=== PATIENT | female | born 1955 | race Caucasian/White ===

== ENCOUNTER → 2017-12-05 | Outpatient (CLI) | payer BC ==
[2017-12-05 16:22] LABS: EOS # 0.2 (0.04-0.40); EOS % 2.2 % (1.0-5.0); HEMATOCRIT 41.9 % (37.0-47.0); HEMOGLOBIN 14.1 g/dL (12.5-16.0); LYMPH# 2.8 (1.50-4.00); MEAN CELL VOLUME 89 fl (78-100); MEAN CORPUSCULAR HEMOGLOBIN 30 pg (27-31); MEAN CORPUSCULAR HGB CONC 34 g/dL (33-37); MEAN PLATELET VOLUME 11.1 fl (7.4-10.4); MONO # 0.8 (0.20-0.80); NEU # 5.1 (1.40-6.50); PLATELET COUNT 221 K/mm3 (130-400); RED BLOOD COUNT 4.71 M/mm3 (4.10-5.30); RED CELL DISTRIBUTION WIDTH 13.4 % (11.5-14.5); WHITE BLOOD COUNT 8.9 K/mm3 (4.8-10.8)
[2017-12-05 16:28] LABS: ALBUMIN 4.3 g/dL (3.5-5.0); BUN/CREATININE RATIO 28.8 (6.0-26.0); CALCIUM 9.3 mg/dL (8.4-10.2); POTASSIUM 4.7 mmol/L (3.6-5.0); TOTAL BILIRUBIN 0.7 mg/dL (0.2-1.3); TOTAL PROTEIN 7.4 g/dL (6.3-8.2)
[2017-12-05 17:10] LABS: URINE APPEARANCE HAZY; URINE BILIRUBIN NEGATIVE (NEGATIVE); URINE BLOOD TRACE (NEGATIVE); URINE COLOR YELLOW; URINE GLUCOSE NEGATIVE (NEGATIVE); URINE KETONE NEGATIVE (NEGATIVE); URINE LEUKOCYTE ESTERASE TRACE (NEGATIVE); URINE NITRATE NEGATIVE (NEGATIVE); URINE PROTEIN(semi-quant) TRACE mg/dL (NEGATIVE); URINE UROBILINOGEN NORMAL (NORMAL)
== END ==
LOC: RAD 15:23
PROVIDERS: Family Medicine
DX: Z01.419 Encounter for gynecological examination (general) (routine) without abnormal findings (principal); E11.9 Type 2 diabetes mellitus without complications; E03.9 Hypothyroidism, unspecified

== ENCOUNTER → 2018-01-02 | Outpatient (CLI) | payer BC | LOC: MAMMO 15:13 | DX: Z12.31 Encounter for screening mammogram for malignant neoplasm of breast (principal) ==

== ENCOUNTER → 2018-05-01 | Outpatient (CLI) | payer BC | LOC: RAD 09:47 | DX: M17.0 Bilateral primary osteoarthritis of knee (principal) ==

== ENCOUNTER 2019-06-16 08:52 | Inpatient (IN) | payer BC ==
[~2019-06-16] VITALS: Ht 167.6 cm; Wt 118.2 kg
[2019-06-16 09:50] LABS: HEMATOCRIT 42.5 % (37.0-47.0); HEMOGLOBIN 13.9 g/dL (12.5-16.0); MEAN CELL VOLUME 90 fl (78-100); MEAN CORPUSCULAR HEMOGLOBIN 29 pg (27-31); MEAN CORPUSCULAR HGB CONC 33 g/dL (33-37); MEAN PLATELET VOLUME 11.5 fl (7.4-10.4); PLATELET COUNT 205 K/mm3 (130-400); RED BLOOD COUNT 4.73 M/mm3 (4.10-5.30); RED CELL DISTRIBUTION WIDTH 14.1 % (11.5-14.5); WHITE BLOOD COUNT 8.3 K/mm3 (4.8-10.8)
[2019-06-16 09:59] LABS: ALBUMIN 4.5 g/dL (3.4-4.8); POTASSIUM 3.8 mmol/L (3.5-5.1)
[2019-06-16 10:00] LABS: CALCIUM 8.8 mg/dL (8.3-10.5)
[2019-06-16 10:01] LABS: TOTAL PROTEIN 7.6 g/dL (6.2-8.1)
[2019-06-16 10:03] LABS: TOTAL BILIRUBIN 0.8 mg/dL (0.2-1.2)
[2019-06-16 10:53] LABS: LYMPHOCYTE 12 % (20-51); MONOCYTE 6 % (3-10); NEUTROPHILS 82 % (42-75)
[2019-06-16 12:35] VITALS: BP 138/69
[2019-06-16 12:39] VITALS: BP 138/69
[2019-06-16 13:11] VITALS: BP 138/69
[2019-06-16 14:13] VITALS: BP 134/74
[2019-06-16 17:06] VITALS: BP 132/68
[2019-06-16 21:47] VITALS: BP 114/65
[2019-06-17 02:00] VITALS: BP 116/68
[2019-06-17 05:32] VITALS: BP 117/73
[2019-06-17 06:16] LABS: EOS # 0.1 (0.04-0.40); EOS % 1.4 % (1.0-5.0); HEMATOCRIT 39.6 % (37.0-47.0); HEMOGLOBIN 12.3 g/dL (12.5-16.0); LYMPH# 1.6 (1.50-4.00); MEAN CELL VOLUME 92 fl (78-100); MEAN CORPUSCULAR HEMOGLOBIN 28 pg (27-31); MEAN CORPUSCULAR HGB CONC 31 g/dL (33-37); MEAN PLATELET VOLUME 10.5 fl (7.4-10.4); MONO # 0.4 (0.20-0.80); NEU # 1.6 (1.40-6.50); PLATELET COUNT 167 K/mm3 (130-400); RED BLOOD COUNT 4.33 M/mm3 (4.10-5.30); RED CELL DISTRIBUTION WIDTH 14.4 % (11.5-14.5); WHITE BLOOD COUNT 3.6 K/mm3 (4.8-10.8)
[2019-06-17 06:44] LABS: ALBUMIN 3.8 g/dL (3.4-4.8)
[2019-06-17 06:45] LABS: POTASSIUM 3.9 mmol/L (3.5-5.1)
[2019-06-17 06:46] LABS: CALCIUM 7.8 mg/dL (8.3-10.5)
[2019-06-17 06:47] LABS: TOTAL PROTEIN 6.4 g/dL (6.2-8.1)
[2019-06-17 06:49] LABS: TOTAL BILIRUBIN 0.5 mg/dL (0.2-1.2)
[2019-06-17 09:50] VITALS: BP 136/79
[2019-06-17 14:15] VITALS: BP 128/69
[2019-06-17 17:00] VITALS: BP 121/69
[2019-06-17 21:39] VITALS: BP 135/76
[2019-06-18 02:08] VITALS: BP 120/66
[2019-06-18 05:42] VITALS: BP 128/64
[2019-06-18 09:52] VITALS: BP 123/79
[2019-06-18] MEDS ORDERED: IPRATROPIUM BROM3 M1 IH (09:59)
[2019-06-18] MEDS ORDERED: OSELTAMIVIR PHO75 MG PO (10:00)
[2019-06-18] MEDS ORDERED: ZITHROMAX500 M2 PO (10:01)
== END 2019-06-18 11:05 | disposition home or self-care (01) | DRG 195 ==
LOC: ED 08:52 → MED/SURG 12:14
PROVIDERS: ADMIT Nurse Practitioner Primary Care
DX: J10.00 Influenza due to other identified influenza virus with unspecified type of pneumonia (principal); E11.9 Type 2 diabetes mellitus without complications; D64.9 Anemia, unspecified; K74.60 Unspecified cirrhosis of liver; Z90.710 Acquired absence of both cervix and uterus; Z88.1 Allergy status to other antibiotic agents; R09.02 Hypoxemia
CPT/HCPCS: C9113; J1650; J7030

== ENCOUNTER → 2019-06-25 | Outpatient (CLI) | payer BC ==
[2019-06-18 09:52] VITALS: BP 123/79
[~2019-06-25] MED LIST: IPRATROPIUM BROM3 M1 IH; OSELTAMIVIR PHO75 MG PO; ZITHROMAX500 M2 PO
[2019-06-25 09:23] LABS: ALBUMIN 4.6 g/dL (3.4-4.8); EOS # 0.2 (0.04-0.40); HEMATOCRIT 43.7 % (37.0-47.0); HEMOGLOBIN 14.6 g/dL (12.5-16.0); LYMPH# 3.3 (1.50-4.00); MEAN CELL VOLUME 88 fl (78-100); MEAN CORPUSCULAR HEMOGLOBIN 30 pg (27-31); MEAN CORPUSCULAR HGB CONC 33 g/dL (33-37); MEAN PLATELET VOLUME 10.8 fl (7.4-10.4); MONO # 0.5 (0.20-0.80); PLATELET COUNT 284 K/mm3 (130-400); POTASSIUM 4.3 mmol/L (3.5-5.1); RED BLOOD COUNT 4.95 M/mm3 (4.10-5.30); RED CELL DISTRIBUTION WIDTH 13.3 % (11.5-14.5); WHITE BLOOD COUNT 8.1 K/mm3 (4.8-10.8)
[2019-06-25 09:25] LABS: CALCIUM 9.7 mg/dL (8.3-10.5)
[2019-06-25 09:26] LABS: TOTAL PROTEIN 7.4 g/dL (6.2-8.1)
[2019-06-25 09:28] LABS: TOTAL BILIRUBIN 0.7 mg/dL (0.2-1.2)
== END ==
LOC: LAB 09:00
PROVIDERS: Family Medicine
DX: E11.9 Type 2 diabetes mellitus without complications (principal); D64.9 Anemia, unspecified

== ENCOUNTER → 2019-11-12 | Outpatient (CLI) | payer BC | LOC: LAB 08:35 | DX: E11.9 Type 2 diabetes mellitus without complications (principal) ==

== ENCOUNTER → 2020-06-07 | Outpatient (CLI) | payer BC ==
[2020-06-07 10:25] LABS: EOS # 0.2 (0.04-0.40); EOS % 3.2 % (1.0-5.0); HEMATOCRIT 46.9 % (37.0-47.0); HEMOGLOBIN 15.3 g/dL (12.5-16.0); LYMPH# 2.5 (1.50-4.00); MEAN CELL VOLUME 90 fl (78-100); MEAN CORPUSCULAR HEMOGLOBIN 29 pg (27-31); MEAN CORPUSCULAR HGB CONC 33 g/dL (33-37); MEAN PLATELET VOLUME 10.3 fl (7.4-10.4); MONO # 0.5 (0.20-0.80); NEU # 3.3 (1.40-6.50); PLATELET COUNT 245 K/mm3 (130-400); RED BLOOD COUNT 5.23 M/mm3 (4.10-5.30); RED CELL DISTRIBUTION WIDTH 13.1 % (11.5-14.5); WHITE BLOOD COUNT 6.5 K/mm3 (4.8-10.8)
[2020-06-07 10:32] LABS: POTASSIUM 4.6 mmol/L (3.5-5.1)
[2020-06-07 10:33] LABS: ALBUMIN 4.4 g/dL (3.4-4.8)
[2020-06-07 10:34] LABS: CALCIUM 9.3 mg/dL (8.3-10.5)
[2020-06-07 10:35] LABS: TOTAL PROTEIN 7.4 g/dL (6.2-8.1)
[2020-06-07 10:37] LABS: TOTAL BILIRUBIN 0.7 mg/dL (0.2-1.2)
== END ==
LOC: LAB 10:08
PROVIDERS: Family Medicine
DX: Z00.00 Encounter for general adult medical examination without abnormal findings (principal); E78.5 Hyperlipidemia, unspecified; E11.9 Type 2 diabetes mellitus without complications

== ENCOUNTER → 2020-06-22 | Outpatient (CLI) | payer BC | LOC: MAMMO 15:38 | DX: Z12.31 Encounter for screening mammogram for malignant neoplasm of breast (principal) ==

== ENCOUNTER → 2020-09-01 | Outpatient (CLI) | payer BC | LOC: RAD 10:30 → VAS 10:30 | DX: R60.9 Edema, unspecified (principal) ==

== ENCOUNTER → 2020-09-06 | Outpatient (CLI) | payer BC ==
[2020-09-06 10:54] LABS: BASO # 0.03 (0.02-0.10); EOS # 0.18 (0.04-0.40); EOS % 2.7 % (1.0-5.0); HEMATOCRIT 41.5 % (37.0-47.0); HEMOGLOBIN 13.9 g/dL (12.5-16.0); MEAN CELL VOLUME 88 fl (78-100); MEAN CORPUSCULAR HEMOGLOBIN 30 pg (27-31); MEAN CORPUSCULAR HGB CONC 34 g/dL (33-37); MEAN PLATELET VOLUME 10.6 fl (7.4-10.4); PLATELET COUNT 235 K/mm3 (130-400); WHITE BLOOD COUNT 6.7 K/mm3 (4.8-10.8)
[2020-09-06 11:00] LABS: ALBUMIN 4.3 g/dL (3.4-4.8); POTASSIUM 4.2 mmol/L (3.5-5.1)
[2020-09-06 11:01] LABS: CALCIUM 9.5 mg/dL (8.3-10.5)
[2020-09-06 11:03] LABS: TOTAL PROTEIN 7.1 g/dL (6.2-8.1)
[2020-09-06 11:04] LABS: TOTAL BILIRUBIN 0.7 mg/dL (0.2-1.2)
== END ==
LOC: LAB 10:27
PROVIDERS: Family Medicine
DX: K74.60 Unspecified cirrhosis of liver (principal); E03.9 Hypothyroidism, unspecified; E11.9 Type 2 diabetes mellitus without complications; D64.9 Anemia, unspecified

== ENCOUNTER → 2020-11-10 | Outpatient (CLI) | payer BC ==
[2020-11-10 17:02] LABS: POTASSIUM 3.7 mmol/L (3.5-5.1)
[2020-11-10 17:04] LABS: CALCIUM 9.4 mg/dL (8.3-10.5)
== END ==
LOC: LAB 16:32
PROVIDERS: Internal Medicine Cardiovascular Disease
DX: R60.0 Localized edema (principal); Z79.899 Other long term (current) drug therapy

== ENCOUNTER → 2020-11-15 | Outpatient (CLI) | payer BC | LOC: RAD 08:00 | DX: K76.0 Fatty (change of) liver, not elsewhere classified (principal) ==

== ENCOUNTER → 2021-02-15 | Outpatient (CLI) | payer BC | LOC: LAB 15:45 | DX: E11.9 Type 2 diabetes mellitus without complications (principal) ==

== ENCOUNTER → 2021-03-08 | Outpatient (CLI) | payer BC ==
[2021-03-08 11:05] LABS: POTASSIUM 4.3 mmol/L (3.5-5.1)
[2021-03-08 11:06] LABS: CALCIUM 9.8 mg/dL (8.3-10.5)
== END ==
LOC: LAB 10:40
PROVIDERS: Internal Medicine Cardiovascular Disease
DX: Z79.899 Other long term (current) drug therapy (principal)

== ENCOUNTER → 2021-06-29 | Outpatient (CLI) | payer MEDICARE, BC | LOC: RAD 09:26 | DX: M79.671 Pain in right foot (principal) ==

== ENCOUNTER 2022-01-17 12:49 | Emergency (ER) | payer MEDICARE, BC ==
[~2022-01-17] VITALS: Ht 170.2 cm; Wt 118.2 kg
[2022-01-17 14:33] VITALS: BP 126/72
== END 2022-01-17 14:30 | disposition home or self-care (01) ==
LOC: ED 12:49
DX: R20.2 Paresthesia of skin (principal); T39.8X5A Adverse effect of other nonopioid analgesics and antipyretics, not elsewhere classified, initial encounter; T42.8X5A Adverse effect of antiparkinsonism drugs and other central muscle-tone depressants, initial encounter
CPT/HCPCS: J2930

== ENCOUNTER → 2022-02-14 | Outpatient (CLI) | payer MEDICARE, BC ==
[2022-02-14 14:01] LABS: BASO # 0.06 K/mm3 (0.02-0.10); EOS # 0.23 K/mm3 (0.04-0.40); EOS % 3.4 % (1.0-5.0); HEMATOCRIT 42.1 % (37.0-47.0); LYMPH# 3.31 K/mm3 (1.50-4.00); MEAN CELL VOLUME 91 fl (78-100); MEAN CORPUSCULAR HEMOGLOBIN 30 pg (27-31); MEAN CORPUSCULAR HGB CONC 33 g/dL (33-37); MEAN PLATELET VOLUME 10.4 fl (7.4-10.4); MONO # 0.35 K/mm3 (0.20-0.80); NEU # 2.85 K/mm3 (1.40-6.50); PLATELET COUNT 252 K/mm3 (130-400); RED BLOOD COUNT 4.64 M/mm3 (4.10-5.30); RED CELL DISTRIBUTION WIDTH 12.8 % (11.5-14.5); WHITE BLOOD COUNT 6.8 K/mm3 (4.8-10.8)
[2022-02-14 14:14] LABS: ALBUMIN 4.6 g/dL (3.4-4.8); POTASSIUM 4.4 mmol/L (3.5-5.1)
[2022-02-14 14:16] LABS: CALCIUM 9.8 mg/dL (8.3-10.5)
[2022-02-14 14:17] LABS: TOTAL PROTEIN 7.6 g/dL (6.2-8.1)
[2022-02-14 14:19] LABS: TOTAL BILIRUBIN 0.6 mg/dL (0.2-1.2)
[2022-02-14 14:35] LABS: D-DIMER 0.36 mg/L FEU (0.15-0.50)
== END ==
LOC: LAB 13:47
PROVIDERS: Family Medicine
DX: K74.60 Unspecified cirrhosis of liver (principal); D64.9 Anemia, unspecified; I35.8 Other nonrheumatic aortic valve disorders; E11.9 Type 2 diabetes mellitus without complications; E66.9 Obesity, unspecified; G47.33 Obstructive sleep apnea (adult) (pediatric); L73.9 Follicular disorder, unspecified; M79.604 Pain in right leg